=== PATIENT | female | born 1960 | race Caucasian/White ===

== ENCOUNTER 2017-09-10 21:00 | Emergency (ER) | payer OTHER ==
[2017-09-10 21:26] VITALS: O2SAT 100
[2017-09-10] MEDS ORDERED: Phenergan 25 MG INJ IV ONE (21:51)
[2017-09-10] MEDS ORDERED: Sodium Chloride 0.9% 1000 ML 1,000 ML IV STA (21:51)
--- NOTE | 2017-09-10 21:51 | ERPHSYRPT ---
- History of Present Illness Time Seen by Provider: 09/10/17 21:38 Source: patient Exam Limitations: no limitations Patient Subjective Stated Complaint: pt states she has been feeling dizzy and nauseous at home. states she began vomiting after arriving Triage Nursing Assessment: pt alert and oriented, answers questions approp. pt ambulatory with steady gait noted. skin pink warm and dry. respirations nonlabored with lungs cta. pt vomiting undigested food upon arrival. bowel sounds present. abd soft and nontender. pupils equal and reactive. bilat upper and lower ext strength equal and wnl. Physician History: The patient is a 57-year-old female from [place] visiting her parents in complaining now of nausea and vomiting that began late this afternoon. She ate at a restaurant in [place] for lunch. She denies abdominal pain. She denies diarrhea. She has been on a carbohydrate limited diet since May. For the past month she's had spells of dizziness for which she takes meclizine. Today she was also slightly dizzy. Her past medical history is significant for dizziness and high cholesterol. Timing/Duration: today Severity: mild Modifying Factors: Improves With: eating Associated Symptoms: nausea, vomiting, No abdominal pain Allergies/Adverse Reactions: ciprofloxacin [From Cipro] Allergy (Verified 09/10/17 21:41) Vomiting Sulfa (Sulfonamide Antibiotics) Allergy (Verified 09/10/17 21:41) codeine Adverse Reaction (Verified 09/10/17 21:41) Vomiting Home Medications: Estradiol 1 mg PO DAILY 09/10/17 [History] Lorazepam 0.5 mg [Ativan 0.5 MG] 0 mg PO BIDPRN PRN 09/10/17 [History] Meclizine HCl 25 mg [Antivert 25 mg] 25 mg PO BIDPRN PRN 09/10/17 [History ] Phentermine HCl [Adipex-P] 37.5 mg PO DAILY 09/10/17 [History] Rosuvastatin Calcium [Crestor] 0 mg PO DAILY 09/10/17 [History] Hx Tetanus, Diphtheria Vaccination/Date Given: Yes (2009) Hx Influenza Vaccination/Date Given: No Hx Pneumococcal Vaccination/Date Given: No Immunizations Up to Date: Yes - Review of Systems Constitutional: No Fever, No Chills Eyes: No Symptoms Ears, Nose, & Throat: No Symptoms Respiratory: No Cough, No Dyspnea Cardiac: No Chest Pain, No Edema, No Syncope Abdominal/Gastrointestinal: Nausea, Vomiting, No Abdominal Pain, No Diarrhea Genitourinary Symptoms: No Dysuria Musculoskeletal: No Back Pain, No Neck Pain Skin: No Symptoms, No Rash Neurological: Dizziness Psychological: No Symptoms Endocrine: No Symptoms Hematologic/Lymphatic: No Symptoms Immunological/Allergic: No Symptoms All Other Systems: Reviewed and Negative - Past Medical History Pertinent Past Medical History: Yes Cardiac History: High Cholesterol Psycho-Social History: Anxiety - Past Surgical History Past Surgical History: Yes Musculoskeletal: Orthopedic Surgery Female Surgical History: Hysterectomy, Tubal Ligation Other Surgical History: foot surgery x2, back surgery - Social History Smoking Status: Never smoker Exposure to second hand smoke: No Drug Use: none Patient Lives Alone: No - Nursing Vital Signs Nursing Vital Signs: Initial Vital Signs Temperature 97.1 F 09/10/17 21:13 Pulse Rate 81 09/10/17 21:13 Respiratory Rate 16 09/10/17 21:13 Blood Pressure 103/73 09/10/17 21:13 O2 Sat by Pulse Oximetry 100 09/10/17 21:13 Pain Scale Pain Intensity 0 - Physical Exam General Appearance: no apparent distress, alert Eye Exam: PERRL/EOMI, eyes nml inspection Ears, Nose, Throat Exam: normal ENT inspection, TMs normal, pharynx normal, moist mucous membranes Neck Exam: normal inspection, non-tender, supple, full range of motion Respiratory Exam: normal breath sounds, lungs clear, No respiratory distress Cardiovascular Exam: regular rate/rhythm, normal heart sounds, normal peripheral pulses Gastrointestinal/Abdomen Exam: soft, normal bowel sounds, No tenderness, No mass Pelvic Exam: not done Rectal Exam: not done Back Exam: normal inspection, normal range of motion, No CVA tenderness, No vertebral tenderness Extremity Exam: normal inspection, normal range of motion, pelvis stable Neurologic Exam: alert, oriented x 3, cooperative, normal mood/affect, nml cerebellar function, nml station & gait, sensation nml, No motor deficits Skin Exam: normal color, warm, dry, No rash Lymphatic Exam: No adenopathy SpO2 Interpretation: normal SpO2: 100 Oxygen Delivery: Room Air - Radiology Exams Chest X-ray Interpretation: Interpreted by me, Negative Abdomen X-ray Interpretation: Interpreted by me, Negative Ordered Tests: Active Orders 24 hr Category Date Time Status IV Insertion STAT Care 09/10/17 21:51 Active OBSTR/ACUTE ABDOMEN SERIES Stat Exams 09/10/17 21:51 Taken BMP Stat Lab 09/10/17 22:06 Completed CBC W DIFF Stat Lab 09/10/17 22:06 Completed Lactic Acid Stat Lab 09/10/17 22:10 Results Medication Summary Discontinued Medications Generic Name Dose Route Start Last Admin Trade Name Simone PRN Reason Stop Dose Admin Sodium Chloride 1,000 mls @ 999 mls/hr 09/10/17 21:51 09/10/17 22:01 Sodium Chloride 0.9% 1000 Ml IV 09/10/17 22:51 999 mls/hr .Q1H1M STA Administration Sodium Chloride Confirm 09/10/17 21:55 Sodium Chloride 0.9% 1000 Ml Administered 09/10/17 21:56 Dose 1,000 mls @ ud .ROUTE .STK-MED ONE Potassium Chloride 10 meq 09/10/17 23:04 Klor Con 10 Meq PO 09/10/17 23:05 STAT ONE Promethazine HCl 25 mg 09/10/17 21:51 09/10/17 22:00 Phenergan 25 Mg Inj IV 09/10/17 21:52 25 mg STAT ONE Administration Promethazine HCl Confirm 09/10/17 21:55 Phenergan 25 Mg Inj Administered 09/10/17 21:56 Dose 25 mg .ROUTE .STK-MED ONE Lab/Rad Data: Laboratory Result Diagrams 09/10/17 22:06 09/10/17 22:06 Laboratory Results 09/10/17 09/10/17 09/10/17 Range/Units 22:10 22:06 22:06 WBC 11.3 H (4.0-10.5) K/mm3 RBC 4.33 (4.1-5.4) M/mm3 Hgb 13.5 (12.0-16.0) gm/dl Hct 40.3 (35-47) % MCV 93.1 (78-100) fl MCH 31.2 (26-32) pg MCHC 33.5 (32-36) g/dl RDW 13.6 (11.5-14.0) % Plt Count 277 (150-450) K/mm3 MPV 10.8 H (6-9.5) fl Gran % 61.8 (36.0-66.0) % Eos # (Auto) 1.42 H (0-0.5) Absolute Lymphs (auto) 2.11 (1.0-4.6) Absolute Monos (auto) 0.76 (0.0-1.3) Lymphocytes % 18.7 L (24.0-44.0) % Monocytes % 6.7 (0.0-12.0) % Eosinophils % 12.6 H (0.00-5.0) % Basophils % 0.2 (0.0-0.4) % Absolute Granulocytes 6.96 H (1.4-6.9) Basophils # 0.02 (0-0.4) Sodium 139 (137-145) mmol/L Potassium 3.4 L (3.5-5.1) mmol/L Chloride 103 (98-107) mmol/L Carbon Dioxide 26 (22-30) mmol/L Anion Gap 13.3 (5-15) MEQ/L BUN 12 (7-17) mg/dL Creatinine 0.75 (0.52-1.04) mg/dL Estimated GFR > 60.0 ML/MIN Glucose 127 H (74-106) mg/dL Lactic Acid 2.3 H (0.4-2.0) Calcium 9.6 (8.4-10.2) mg/dL - Progress Progress: improved Counseled pt/family regarding: lab results, diagnosis, rad results - Departure Time of Disposition: 23:10 Departure Disposition: Home Clinical Impression: Vomiting, Hypokalemia Condition: Stable Critical Care Time: No Additional Instructions: You have vomiting and mildly low serum potassium. You were given Phenergan 25 mg and fluids by IV and potassium 10 mEq orally in the ER. You may continue to take Phenergan 25 mg orally every 8 hours as needed. Stay well hydrated. Follow-up as needed.
[2017-09-10] MEDS ORDERED: Phenergan 25 MG INJ ONE (21:55)
[2017-09-10] MEDS ORDERED: Sodium Chloride 0.9% 1000 ML 1,000 ML ONE (21:55)
[2017-09-10 22:09] VITALS: PULSE 69
[2017-09-10 22:10] LABS: BASOPHIL % 0.2 % (0.0-0.4); Basophil (Absolute #) 0.02 (0-0.4); Eosinophil % 12.6 % (0.00-5.0); Eosinophil (Absolute #) 1.42 (0-0.5); Granulocyte Absolute (ANC) 6.96 (1.4-6.9); Granulocytes % 61.8 % (36.0-66.0); Hematocrit 40.3 % (35-47); Hemoglobin 13.5 gm/dl (12.0-16.0); Lymphocyte (Absolute #) 2.11 (1.0-4.6); Lymphocytes % 18.7 % (24.0-44.0); Mean Cell Volume 93.1 fl (78-100); Mean Corpuscular Hemoglobin 31.2 pg (26-32); Mean Corpuscular Hgb Concent. 33.5 g/dl (32-36); Mean Platelet Volume 10.8 fl (6-9.5); Monocyte (Absolute #) 0.76 (0.0-1.3); Monocytes % 6.7 % (0.0-12.0); Platelet Count 277 K/mm3 (150-450); Red Blood Count 4.33 M/mm3 (4.1-5.4); Red Cell Distribution Width 13.6 % (11.5-14.0); White Blood Count 11.3 K/mm3 (4.0-10.5)
[2017-09-10 22:16] LABS: Lactic Acid 2.3 (0.4-2.0)
[2017-09-10 22:26] LABS: ANION GAP 13.3 MEQ/L (5-15); BLOOD UREA NITROGEN 12 mg/dL (7-17); CHLORIDE 103 mmol/L (98-107); Calcium 9.6 mg/dL (8.4-10.2); Carbon Dioxide 26 mmol/L (22-30); Creatinine 1 0.75 mg/dL (0.52-1.04); Glucose 127 mg/dL (74-106); Potassium 3.4 mmol/L (3.5-5.1); SODIUM 139 mmol/L (137-145)
[2017-09-10] MEDS ORDERED: Klor Con 10 MEQ PO ONE ×2 (23:04→23:13)
[2017-09-10] MEDS ORDERED: PHENERGAN 25 MG PO ONE (23:10)
[2017-09-10] MEDS ORDERED: PHENERGAN 25 MG ONE (23:13)
[2017-09-10 23:29] VITALS: BP 142/69
--- NOTE | 2017-09-11 08:37 | XRAY ---
Indication: Dizziness, vomiting, and swelling. Comparison: None 2 views of the abdomen nonacute and nonobstructed. Solid organs unremarkable. Osseous structures intact with lower lumbar degenerative changes. Single AP chest demonstrates normal heart and lungs. Bony thorax intact with minimal degenerative changes. Impression: Negative abdomen. Nonacute one view chest.
== END 2017-09-10 23:29 | disposition home or self-care (01) ==
LOC: ED 21:00
DX: R11.2 Nausea with vomiting, unspecified (principal); E87.6 Hypokalemia; R42 Dizziness and giddiness; Z79.899 Other long term (current) drug therapy
CPT/HCPCS: 36000; 36415; 74022; 80048; 83605; 85025; 96365; 96374; 99284; J2550; A9270-GY